=== PATIENT | female | born 1975 | race African-American/Black ===

== ENCOUNTER 2022-08-22 16:23 | Emergency (ER) | payer OTHER ==
[2022-08-22 16:29] VITALS: BP 149/91; PULSE 107; RESP 18; TEMP 98; BMI 35.9
[2022-08-22] MEDS ORDERED: IBUPROFEN 600 MG TABLET (FP) PO ONE (18:38)
[2022-08-22] MEDS ORDERED: ACETAMINOPHEN 500 MG TABLET (FP) ONE (18:38)
== END 2022-08-22 19:04 | disposition home or self-care (01) ==
LOC: JERFT 16:23
DX: M25.571 Pain in right ankle and joints of right foot (principal); M25.471 Effusion, right ankle; X50.1XXA Overexertion from prolonged static or awkward postures, initial encounter
CPT/HCPCS: 73610-TC-RT-FY; 73630-TC-RT-FY; 99284-25

== ENCOUNTER 2023-08-10 20:18 | Observation (INO) | payer OTHER ==
[2023-08-10] MEDS ORDERED: MAG HYDROX/AL HYDROX/SIMETH 30 ML UNIT-DOSE CUP ONE (21:00)
[2023-08-10] MEDS ORDERED: ACETAMINOPHEN INJECTION 100 ML IVPB ONE (21:00)
[2023-08-10] MEDS ORDERED: ONDANSETRON 4 MG/2 ML VIAL ONE (21:00)
[2023-08-10] MEDS ORDERED: FAMOTIDINE 20 MG/50 ML IVPB 20 MG/50 ML MG IVPB ONE (21:00)
[2023-08-10] MEDS ORDERED: SUCRALFATE 1 GM TABLET (FP) ONE (21:00)
[2023-08-10] MEDS: ONDANSETRON 4 MG/2 ML VIAL IVPUSH ONE (21:20)
[2023-08-10] MEDS: MAG HYDROX/AL HYDROX/SIMETH 30 ML UNIT-DOSE CUP PO ONE (21:20)
[2023-08-10] MEDS: FAMOTIDINE 20 MG/50 ML IVPB 20 MG/50 ML MG IVPB ONE (21:20)
[2023-08-10] MEDS: ACETAMINOPHEN 1000 MG/100 ML BAG IVPB ONE (21:20)
[2023-08-10] MEDS: SUCRALFATE 1 GM/10 ML UNIT DOSE CUPS PO ONE (21:21)
[2023-08-10 21:26] LABS: BASO % 0.9 % (0-2.0); EOS % 6.2 % (0-4.5); HEMATOCRIT 26.4 % (32.4-45.2); HEMOGLOBIN 8.4 GM/dL (10.7-15.3); LYMPH % 22.3 % (8-40); MCH 22.1 pg (25.7-33.7); MCHC 31.8 g/dl (32.0-36.0); MEAN CELL VOLUME 69.6 fl (80-96); MEAN PLT VOLUME 7.3 fl (7.5-11.1); NEUT % 63.6 % (42.8-82.8); PLATELET COUNT 355 10^3/uL (134-434); RBC 3.79 M/mm3 (3.60-5.2); RDW 18.2 % (11.6-15.6); URINE APPEARANCE CLEAR; URINE BILIRUBIN NEGATIVE (NEGATIVE); URINE COLOR YELLOW; URINE GLUCOSE (UA) NEGATIVE (NEGATIVE); URINE KETONE NEGATIVE (NEGATIVE); URINE LEUK ESTERASE NEGATIVE (NEGATIVE); URINE NITRITE NEGATIVE (NEGATIVE); URINE PROTEIN NEGATIVE (NEGATIVE); URINE UROBILINOGEN 0.2 mg/dL (0.2-1.0); WHITE BLOOD COUNT 4.8 K/mm3 (4.0-10.0)
[2023-08-10 21:44] LABS: CALCIUM 9.5 mg/dL (8.5-10.1)
[2023-08-10 21:45] LABS: ALBUMIN 3.5 g/dl (3.4-5.0); BLOOD UREA NITROGEN 18.6 mg/dL (7-18); MAGNESIUM 2.2 mg/dL (1.8-2.4)
[2023-08-10 21:48] LABS: CREATININE 0.9 mg/dL (0.55-1.3)
[2023-08-10 21:50] LABS: BILIRUBIN,TOTAL 0.3 mg/dL (0.2-1); TOT PROT 7.8 g/dl (6.4-8.2)
[2023-08-10] MEDS ORDERED: ASPIRIN 81 MG CHEWABLE TABLETS ONE (23:52)
[2023-08-10] MEDS: ASPIRIN 81 MG CHEWABLE TABLETS PO ONE ×2 (23:57)
[2023-08-11 06:33] LABS: HEMATOCRIT 26.3 % (32.4-45.2); HEMOGLOBIN 8.3 GM/dL (10.7-15.3); MCH 22.1 pg (25.7-33.7); MCHC 31.5 g/dl (32.0-36.0); MEAN CELL VOLUME 70.2 fl (80-96); MEAN PLT VOLUME 7.7 fl (7.5-11.1); PLATELET COUNT 346 10^3/uL (134-434); RBC 3.75 M/mm3 (3.60-5.2); RDW 18.1 % (11.6-15.6); WHITE BLOOD COUNT 3.3 K/mm3 (4.0-10.0)
[2023-08-11 06:55] LABS: POTASSIUM 4.3 mmol/L (3.5-5.1)
[2023-08-11 07:00] LABS: BLOOD UREA NITROGEN 15.4 mg/dL (7-18)
[2023-08-11 07:01] LABS: ALBUMIN 3.2 g/dl (3.4-5.0)
[2023-08-11 07:03] LABS: MAGNESIUM 2.4 mg/dL (1.8-2.4); PHOSPHOROUS 4.1 mg/dL (2.5-4.9)
[2023-08-11 07:05] LABS: BILIRUBIN,TOTAL 0.4 mg/dL (0.2-1)
[2023-08-11 07:06] LABS: CREATININE 0.8 mg/dL (0.55-1.3)
[2023-08-11 07:07] LABS: TOT PROT 6.8 g/dl (6.4-8.2)
[2023-08-12 01:41] VITALS: BMI 36.6
[2023-08-12 07:48] LABS: CHOLESTEROL 206 mg/dL (50-200)
[2023-08-12 07:50] LABS: LDL CHOLESTEROL (ONLY SJRH) 136 mg/dL (5-100)
[2023-08-12 07:52] LABS: HDL CHOLESTEROL 57 mg/dL (40-60)
[2023-08-12] MEDS ORDERED: REGADENOSON 0.4 MG/5 ML PRE-FILLED SYRINGE IVPUSH ONE (09:11)
[2023-08-12] MEDS: REGADENOSON 0.4 MG/5 ML PRE-FILLED SYRINGE IVPUSH ONE (10:30)
[2023-08-12] MEDS: ROSUVASTATIN CA 20 MG TABLET PO SCH (21:00)
[2023-08-12] MEDS: POLYETHYLENE GLYCOL (HEALTHYLAX) 3350 17 GM PACKET PO PRN (21:00)
[2023-08-13] MEDS ORDERED: MAG HYDROX/AL HYDROX/SIMETH 30 ML UNIT-DOSE CUP PO PRN (11:11)
[2023-08-13] MEDS: VITAMIN B COMP W-C 1 EA TABLET (NEPHRO-VITE) PO SCH (12:52)
[2023-08-13] MEDS: FERROUS SO4 325 MG TABLET (FP) PO SCH (12:52)
[2023-08-13] MEDS: IRON SUCROSE INJECTION 200 MG in SODIUM CHLORIDE 100 ML IVPB ONE (12:53)
[2023-08-13] MEDS: SODIUM CHLORIDE 500 ML IV STA (12:53)
[2023-08-13 18:39] VITALS: BP 145/83; PULSE 96; RESP 17; TEMP 98.6
[2023-08-14] MEDS ORDERED: ASCORBIC ACID 500 MG TABLET (FP) PO SCH (10:00)
== END 2023-08-13 20:00 | disposition home or self-care (01) ==
LOC: JER 20:18 → JERBED 08-11 01:42 → J4S 08-12 01:11
PROVIDERS: ADMIT Internal Medicine; ATTEND Internal Medicine
PROC: 3E033NZ Introduction of Analgesics, Hypnotics, Sedatives into Peripheral Vein, Percutaneous Approach (ICD-10-PCS; principal; 2023-08-11)
PROC: 3E033GC Introduction of Other Therapeutic Substance into Peripheral Vein, Percutaneous Approach (ICD-10-PCS; 2023-08-11)
PROC: 3E0337Z Introduction of Electrolytic and Water Balance Substance into Peripheral Vein, Percutaneous Approach (ICD-10-PCS; 2023-08-11)
DX: D50.9 Iron deficiency anemia, unspecified (principal); E66.9 Obesity, unspecified; D64.89 Other specified anemias; R10.13 Epigastric pain; R77.8 Other specified abnormalities of plasma proteins; Z88.8 Allergy status to other drugs, medicaments and biological substances; N92.0 Excessive and frequent menstruation with regular cycle
CPT/HCPCS: 0241U-QW; 36415; 71046-TC-FY; 71275-TC; 76830-TC; 78452-TC; 80053; 80061; 81003; 82272; 82728; 83540; 83550; 83735; 84100; 84443; 84466; 84484; 84703; 85025; 85027; 87086; 93005; 93010; 93017; 93306-TC; 99285-25; A9502; G0378; J0131; J1756; J2785; Q9967

== ENCOUNTER 2023-08-15 14:56 | Inpatient (IN) | payer OTHER ==
[2023-08-15] MEDS: SODIUM CHLORIDE 0.9% 500 ML INFUS.BAG IV ONE (15:55)
[2023-08-15] MEDS: ACETAMINOPHEN 1000 MG/100 ML BAG IVPB ONE (15:55)
[2023-08-15] MEDS ORDERED: ACETAMINOPHEN INJECTION 100 ML IVPB ONE (15:57)
[2023-08-15 16:08] LABS: BASO % 0.3 % (0-2.0); EOS % 1.5 % (0-4.5); HEMATOCRIT 28.2 % (32.4-45.2); HEMOGLOBIN 8.9 GM/dL (10.7-15.3); LYMPH % 9.4 % (8-40); MCH 21.8 pg (25.7-33.7); MCHC 31.5 g/dl (32.0-36.0); MEAN CELL VOLUME 69.2 fl (80-96); MEAN PLT VOLUME 7.3 fl (7.5-11.1); MONO % 5.2 % (3.8-10.2); NEUT % 83.6 % (42.8-82.8); PLATELET COUNT 352 10^3/uL (134-434); RBC 4.07 M/mm3 (3.60-5.2); RDW 18.1 % (11.6-15.6); WHITE BLOOD COUNT 8.7 K/mm3 (4.0-10.0)
[2023-08-15 16:13] LABS: INR 1.05 (0.83-1.09); PROTHROMBIN TIME (PATIENT) 12.1 SEC (9.7-13.0)
[2023-08-15 16:16] LABS: ACTIVATED PTT 26.9 SECONDS (25.2-36.5)
[2023-08-15 16:25] LABS: POTASSIUM 3.6 mmol/L (3.5-5.1)
[2023-08-15] MEDS ORDERED: PIPERACILLIN/TAZOB 4.5 GM 4.5 GM/100 ML BAG IVPB ONE (16:26)
[2023-08-15] MEDS ORDERED: CLINDAMYCIN 600MG PREMIX IVPB 600 MG/50 ML BAG IVPB ONE (16:27)
[2023-08-15 16:28] LABS: ALBUMIN 3.6 g/dl (3.4-5.0)
[2023-08-15 16:31] LABS: CREATININE 0.7 mg/dL (0.55-1.3)
[2023-08-15 16:33] LABS: BILIRUBIN,TOTAL 0.2 mg/dL (0.2-1); TOT PROT 7.6 g/dl (6.4-8.2)
[2023-08-15 16:35] LABS: ANISOCYTOSIS 2+; MACROCYTOSIS 0; OVALOCYTE 1+; TEAR DROP CELLS 1+
[2023-08-15] MEDS: CLINDAMYCIN 600MG PREMIX IVPB 600 MG/50 ML BAG IVPB ONE (16:35)
[2023-08-15] MEDS: PIPERACILLIN/TAZOB 4.5 GM 4.5 GM in DEXTROSE 5%-WATER 100 ML IVPB ONE (16:35)
[2023-08-15 17:11] LABS: ERYTHROCYTE SEDIMENTATION RATE 39 mm/hr (0-20)
[2023-08-15] MEDS: VANCOMYCIN 2,000 MG in DEXTROSE 5%-WATER - 500 ML IVPB ONE (17:13)
[2023-08-15] MEDS: VANCOMYCIN/WATER 2 GRAMS 2,000 MG/400 ML PIGGYBACK IVPB ONE (17:14)
[2023-08-15] MEDS: morphine CARPU-JECT 2 MG/1 ML DISP.SYRIN IVPUSH ONE (19:30)
[2023-08-15] MEDS ORDERED: FAMOTIDINE 20 MG/50 ML IVPB 20 MG/50 ML MG IVPB ONE (19:37)
[2023-08-15] MEDS ORDERED: methylPREDNISolone NA SUCC 125 MG/2 ML VIAL ONE (19:38)
[2023-08-15] MEDS: methylPREDNISolone NA SUCC 125 MG/2 ML VIAL IVPUSH ONE (19:40)
[2023-08-15] MEDS: FAMOTIDINE 20 MG/50 ML IVPB 20 MG/50 ML MG IVPB ONE (21:46)
[2023-08-16] MEDS: PIPERACILLIN/TAZOB 3.375 GM 3.375 GM in DEXTROSE 5%-WATER - 50 ML IVPB SCH ×3 (00:09→17:17)
[2023-08-16] MEDS ORDERED: PIPERACILLIN/TAZOB 3.375 GM 3.375 GM in DEXTROSE 5%-WATER - 50 ML IVPB SCH (02:00)
[2023-08-16 03:16] VITALS: BMI 37.4
[2023-08-16 08:09] LABS: POTASSIUM 4.2 mmol/L (3.5-5.1)
[2023-08-16 08:13] LABS: CALCIUM 8.7 mg/dL (8.5-10.1)
[2023-08-16 08:14] LABS: BLOOD UREA NITROGEN 15.2 mg/dL (7-18); MAGNESIUM 1.9 mg/dL (1.8-2.4)
[2023-08-16 08:16] LABS: CREATININE 0.8 mg/dL (0.55-1.3); PHOSPHOROUS 3.1 mg/dL (2.5-4.9)
[2023-08-16 08:27] LABS: HEMATOCRIT 27.7 % (32.4-45.2); HEMOGLOBIN 8.7 GM/dL (10.7-15.3); MCHC 31.3 g/dl (32.0-36.0); MEAN CELL VOLUME 70.4 fl (80-96); PLATELET COUNT 333 10^3/uL (134-434); RBC 3.93 M/mm3 (3.60-5.2); RDW 18.6 % (11.6-15.6); WHITE BLOOD COUNT 11.3 K/mm3 (4.0-10.0)
[2023-08-16] MEDS: FERROUS GLUCONATE 324 MG TAB (FP) PO SCH (08:45)
[2023-08-16] MEDS: VITAMIN B COMP W-C 1 EA TABLET (NEPHRO-VITE) PO SCH (09:59)
[2023-08-16] MEDS: SODIUM CHLORIDE 1,000 ML IV STA (11:18)
[2023-08-16] MEDS: ACETAMINOPHEN 325 MG TABLET (FP) PO PRN (12:15)
[2023-08-16] MEDS: HEPARIN NA (PORCINE) 5,000 UNITS/ML 1ML VIAL SQ SCH (14:52)
[2023-08-16] MEDS: SODIUM CHLORIDE 500 ML IV STA (15:30)
[2023-08-16] MEDS: SODIUM CHLORIDE 1,000 ML IV SCH (17:16)
[2023-08-16] MEDS: DOXYCYCLINE HYCLATE 100 MG CAPSULE PO SCH (17:16)
[2023-08-16] MEDS: oxyCODONE HCL 5 MG TABLET PO PRN (22:31)
[2023-08-16] MEDS: ROSUVASTATIN CA 20 MG TABLET PO SCH (22:32)
[2023-08-17 12:49] LABS: BASO % 0.4 % (0-2.0); EOS % 0.3 % (0-4.5); HEMATOCRIT 26.8 % (32.4-45.2); HEMOGLOBIN 8.3 GM/dL (10.7-15.3); MCH 22.2 pg (25.7-33.7); MCHC 31.1 g/dl (32.0-36.0); MEAN CELL VOLUME 71.4 fl (80-96); MEAN PLT VOLUME 7.7 fl (7.5-11.1); MONO % 5.2 % (3.8-10.2); NEUT % 79.1 % (42.8-82.8); PLATELET COUNT 315 10^3/uL (134-434); RBC 3.76 M/mm3 (3.60-5.2); RDW 18.6 % (11.6-15.6); WHITE BLOOD COUNT 10.6 K/mm3 (4.0-10.0)
[2023-08-17 13:08] LABS: POTASSIUM 4.2 mmol/L (3.5-5.1)
[2023-08-17 13:10] LABS: ALBUMIN 3.2 g/dl (3.4-5.0); BLOOD UREA NITROGEN 14.1 mg/dL (7-18); CALCIUM 8.6 mg/dL (8.5-10.1)
[2023-08-17 13:13] LABS: CREATININE 0.8 mg/dL (0.55-1.3)
[2023-08-17 13:15] LABS: BILIRUBIN,TOTAL 0.3 mg/dL (0.2-1); TOT PROT 7.1 g/dl (6.4-8.2)
[2023-08-18 07:46] LABS: POTASSIUM 4.7 mmol/L (3.5-5.1)
[2023-08-18 07:57] LABS: BLOOD UREA NITROGEN 12.9 mg/dL (7-18)
[2023-08-18 07:58] LABS: ALBUMIN 3.1 g/dl (3.4-5.0)
[2023-08-18 08:01] LABS: CREATININE 0.8 mg/dL (0.55-1.3)
[2023-08-18 08:02] LABS: BILIRUBIN,TOTAL 0.4 mg/dL (0.2-1); TOT PROT 6.8 g/dl (6.4-8.2)
[2023-08-18 09:33] LABS: HEMATOCRIT 27.7 % (32.4-45.2); HEMOGLOBIN 8.8 GM/dL (10.7-15.3); MCH 22.6 pg (25.7-33.7); MCHC 31.7 g/dl (32.0-36.0); MEAN CELL VOLUME 71.2 fl (80-96); MEAN PLT VOLUME 7.6 fl (7.5-11.1); PLATELET COUNT 340 10^3/uL (134-434); RDW 18.6 % (11.6-15.6); WHITE BLOOD COUNT 7.5 K/mm3 (4.0-10.0)
[2023-08-18] MEDS: IRON SUCROSE INJECTION 100 MG in SODIUM CHLORIDE 95 ML IVPB ONE (11:57)
[2023-08-18] MEDS: SILVER SULFADIAZINE 1% TOP CREAM 50 GM JAR TP SCH (14:26)
[2023-08-18] MEDS: DOXYCYCLINE INJECTION 100 MG in DEXTROSE 5%-WATER 100 ML IVPB SCH (21:23)
[2023-08-19 07:36] LABS: POTASSIUM 4.1 mmol/L (3.5-5.1)
[2023-08-19 07:48] LABS: BLOOD UREA NITROGEN 11.5 mg/dL (7-18); CALCIUM 8.8 mg/dL (8.5-10.1); MAGNESIUM 2.1 mg/dL (1.8-2.4)
[2023-08-19 07:51] LABS: CREATININE 0.8 mg/dL (0.55-1.3); PHOSPHOROUS 4.2 mg/dL (2.5-4.9)
[2023-08-19 07:53] LABS: BILIRUBIN,TOTAL 0.3 mg/dL (0.2-1); TOT PROT 6.9 g/dl (6.4-8.2)
[2023-08-19 08:23] LABS: HEMATOCRIT 27.9 % (32.4-45.2); HEMOGLOBIN 8.8 GM/dL (10.7-15.3); MCH 22.5 pg (25.7-33.7); MCHC 31.6 g/dl (32.0-36.0); MEAN CELL VOLUME 71.4 fl (80-96); PLATELET COUNT 315 10^3/uL (134-434); RBC 3.91 M/mm3 (3.60-5.2); RDW 18.8 % (11.6-15.6)
[2023-08-19 10:06] LABS: ANISOCYTOSIS 2+; MACROCYTOSIS 0; OVALOCYTE 1+
[2023-08-19 10:08] LABS: PLATELET ESTIMATE ADEQUATE
[2023-08-20] MEDS ORDERED: ACETAMINOPHEN 325 MG TABLET (FP) PO PRN (07:47)
[2023-08-20] MEDS: FERROUS GLUCONATE 324 MG TAB (FP) PO SCH (08:57)
[2023-08-20] MEDS: oxyCODONE HCL 5 MG TABLET PO PRN (08:59)
[2023-08-20 09:57] LABS: HEMATOCRIT 30.5 % (32.4-45.2); HEMOGLOBIN 9.6 GM/dL (10.7-15.3); MCH 22.7 pg (25.7-33.7); MCHC 31.5 g/dl (32.0-36.0); MEAN CELL VOLUME 71.9 fl (80-96); MEAN PLT VOLUME 7.8 fl (7.5-11.1); PLATELET COUNT 340 10^3/uL (134-434); RBC 4.25 M/mm3 (3.60-5.2); RDW 18.6 % (11.6-15.6); WHITE BLOOD COUNT 5.8 K/mm3 (4.0-10.0)
[2023-08-20 10:13] LABS: POTASSIUM 4.1 mmol/L (3.5-5.1)
[2023-08-20 10:21] LABS: CALCIUM 9.7 mg/dL (8.5-10.1)
[2023-08-20 10:22] LABS: ALBUMIN 3.5 g/dl (3.4-5.0); MAGNESIUM 2.2 mg/dL (1.8-2.4)
[2023-08-20 10:24] LABS: CREATININE 0.8 mg/dL (0.55-1.3); PHOSPHOROUS 3.8 mg/dL (2.5-4.9)
[2023-08-20 10:26] LABS: BILIRUBIN,TOTAL 0.4 mg/dL (0.2-1); TOT PROT 7.5 g/dl (6.4-8.2)
[2023-08-20] MEDS: PIPERACILLIN/TAZOB 3.375 GM 3.375 GM in DEXTROSE 5%-WATER - 50 ML IVPB SCH (10:27)
[2023-08-20] MEDS: VITAMIN B COMP W-C 1 EA TABLET (NEPHRO-VITE) PO SCH (10:30)
[2023-08-20] MEDS: SILVER SULFADIAZINE 1% TOP CREAM 50 GM JAR TP SCH (10:31)
[2023-08-20] MEDS: DOXYCYCLINE INJECTION 100 MG in DEXTROSE 5%-WATER 100 ML IVPB SCH (11:06)
[2023-08-20] MEDS: HEPARIN NA (PORCINE) 5,000 UNITS/ML 1ML VIAL SQ SCH (13:46)
[2023-08-20] MEDS: ROSUVASTATIN CA 20 MG TABLET PO SCH (22:20)
[2023-08-21 13:12] LABS: BASO % 0.5 % (0-2.0); EOS % 4.1 % (0-4.5); HEMATOCRIT 30.3 % (32.4-45.2); HEMOGLOBIN 9.4 GM/dL (10.7-15.3); LYMPH % 17.7 % (8-40); MCH 22.5 pg (25.7-33.7); MEAN CELL VOLUME 72.6 fl (80-96); MEAN PLT VOLUME 7.7 fl (7.5-11.1); MONO % 3.7 % (3.8-10.2); PLATELET COUNT 311 10^3/uL (134-434); RBC 4.17 M/mm3 (3.60-5.2); RDW 19.6 % (11.6-15.6); WHITE BLOOD COUNT 6.1 K/mm3 (4.0-10.0)
[2023-08-21] MEDS: DOXYCYCLINE HYCLATE 100 MG CAPSULE PO SCH (17:49)
[2023-08-22 09:21] LABS: BASO % 0.4 % (0-2.0); EOS % 4.3 % (0-4.5); HEMATOCRIT 29.3 % (32.4-45.2); HEMOGLOBIN 9.3 GM/dL (10.7-15.3); LYMPH % 20.6 % (8-40); MCH 23.1 pg (25.7-33.7); MCHC 31.7 g/dl (32.0-36.0); MEAN CELL VOLUME 72.8 fl (80-96); MEAN PLT VOLUME 7.7 fl (7.5-11.1); MONO % 6.3 % (3.8-10.2); NEUT % 68.4 % (42.8-82.8); PLATELET COUNT 300 10^3/uL (134-434); RBC 4.03 M/mm3 (3.60-5.2); RDW 19.9 % (11.6-15.6); WHITE BLOOD COUNT 5.5 K/mm3 (4.0-10.0)
[2023-08-22 09:25] LABS: POTASSIUM 4.2 mmol/L (3.5-5.1)
[2023-08-22 09:28] LABS: CALCIUM 9.4 mg/dL (8.5-10.1)
[2023-08-22 09:29] LABS: ALBUMIN 3.3 g/dl (3.4-5.0); BLOOD UREA NITROGEN 13.3 mg/dL (7-18); MAGNESIUM 2.1 mg/dL (1.8-2.4)
[2023-08-22 09:32] LABS: CREATININE 0.8 mg/dL (0.55-1.3)
[2023-08-22 09:34] LABS: BILIRUBIN,TOTAL 0.5 mg/dL (0.2-1); TOT PROT 6.9 g/dl (6.4-8.2)
[2023-08-22] MEDS: LIDOCAINE 4% PATCH TP SCH (09:52)
[2023-08-22 11:32] VITALS: RESP 20
[2023-08-22] MEDS ORDERED: IBUPROFEN 200 MG TABLET PO PRN (13:25)
[2023-08-22] MEDS: LIDOCAINE PATCH REMOVAL MC SCH (22:57)
[2023-08-23 08:50] LABS: BASO % 0.6 % (0-2.0); EOS % 4.7 % (0-4.5); HEMATOCRIT 30.9 % (32.4-45.2); HEMOGLOBIN 9.7 GM/dL (10.7-15.3); LYMPH % 20.7 % (8-40); MCH 23.1 pg (25.7-33.7); MCHC 31.5 g/dl (32.0-36.0); MEAN CELL VOLUME 73.3 fl (80-96); MEAN PLT VOLUME 7.6 fl (7.5-11.1); MONO % 5.4 % (3.8-10.2); NEUT % 68.6 % (42.8-82.8); PLATELET COUNT 309 10^3/uL (134-434); RBC 4.22 M/mm3 (3.60-5.2); RDW 21.4 % (11.6-15.6); WHITE BLOOD COUNT 5.6 K/mm3 (4.0-10.0)
[2023-08-23 08:56] LABS: POTASSIUM 4.4 mmol/L (3.5-5.1)
[2023-08-23 08:57] LABS: CALCIUM 9.4 mg/dL (8.5-10.1)
[2023-08-23 08:58] LABS: ALBUMIN 3.4 g/dl (3.4-5.0); BLOOD UREA NITROGEN 12.5 mg/dL (7-18); MAGNESIUM 2.1 mg/dL (1.8-2.4)
[2023-08-23 09:01] LABS: CREATININE 0.8 mg/dL (0.55-1.3)
[2023-08-23 09:02] LABS: BILIRUBIN,TOTAL 0.3 mg/dL (0.2-1); TOT PROT 7.8 g/dl (6.4-8.2)
[2023-08-23] MEDS: RIVAROXABAN 10 MG TABLET PO SCH (18:36)
[2023-08-24 09:43] LABS: BASO % 1.4 % (0-2.0); EOS % 3.6 % (0-4.5); HEMATOCRIT 31.7 % (32.4-45.2); LYMPH % 20.5 % (8-40); MCH 23.6 pg (25.7-33.7); MCHC 31.6 g/dl (32.0-36.0); MEAN CELL VOLUME 74.8 fl (80-96); MEAN PLT VOLUME 7.4 fl (7.5-11.1); MONO % 4.1 % (3.8-10.2); NEUT % 70.4 % (42.8-82.8); PLATELET COUNT 291 10^3/uL (134-434); RBC 4.24 M/mm3 (3.60-5.2); WHITE BLOOD COUNT 5.8 K/mm3 (4.0-10.0)
[2023-08-24 09:47] VITALS: BP 128/76; PULSE 103; TEMP 97.7
[2023-08-24] MEDS: GABAPENTIN 100 MG CAPSULE PO ONE (09:48)
[2023-08-24 10:24] LABS: CALCIUM 9.9 mg/dL (8.5-10.1)
[2023-08-24 10:25] LABS: ALBUMIN 3.6 g/dl (3.4-5.0); BLOOD UREA NITROGEN 11.6 mg/dL (7-18); MAGNESIUM 2.1 mg/dL (1.8-2.4)
[2023-08-24 10:28] LABS: CREATININE 0.8 mg/dL (0.55-1.3); TOT PROT 8.1 g/dl (6.4-8.2)
[2023-08-24 10:29] LABS: BILIRUBIN,TOTAL 0.3 mg/dL (0.2-1)
== END 2023-08-24 13:31 | disposition home or self-care (01) | DRG 300 ==
LOC: JER 14:56 → JERBED 18:55 → J4W 23:20 → J8W 08-20 00:08
PROVIDERS: ADMIT Internal Medicine; ATTEND Nurse Practitioner Acute Care
DX: I82.611 Acute embolism and thrombosis of superficial veins of right upper extremity (principal); L03.113 Cellulitis of right upper limb; E66.9 Obesity, unspecified; Z68.37 Body mass index [BMI] 37.0-37.9, adult; D50.9 Iron deficiency anemia, unspecified; E78.5 Hyperlipidemia, unspecified
CPT/HCPCS: 36415; 73060-TC-RT-FY; 73070-TC-RT-FY; 73090-TC-RT-FY; 73201-TC-RT; 80048; 80053; 82550; 82962; 83605; 83735; 84100; 84703; 85025; 85027; 85610; 85651; 85730; 86140; 86850; 86900; 86901; 87040; 87070; 87205; 93005; 93010; 93971; 97116-GP; 97161-GP; 99285-25; J0131; J1644; J1756; Q9967